=== PATIENT | male | born 1955 | race Two or more races ===

== ENCOUNTER → 2020-07-19 | Outpatient (CLI) | payer OTHER ==
--- NOTE | 2020-07-19 13:20 | Diagnostic Imaging Report ---
Exam: CHEST 2 VIEWS Date: 07/19/2020 1:16 PM INDICATION: ^COUGH Comparison: None FINDINGS: Lateral view is limited due to low lung volumes. Lines/Tubes:None Lungs:The lungs are well inflated. No focal consolidation or pulmonary edema. Bilateral nodular probable nipple shadows are noted at the lung bases. Pleura:No pleural effusion. No pneumothorax. Heart/Mediastinum:The cardiomediastinal silhouette is normal in size and contour. Bones/Soft Tissues: No acute osseous abnormality. Upper abdomen: Unremarkable. IMPRESSION: Negative for acute intrathoracic process. Signed by: Jerson Ibarra MD on 07/19/2020 1:17 PM
== END ==
LOC: RAD 12:14
PROVIDERS: ATTEND Internal Medicine
DX: R05 Cough (principal)
CPT/HCPCS: 71046

== ENCOUNTER → 2020-12-27 | Outpatient (CLI) | payer OTHER, MEDICARE | LOC: RAD 12:12 | PROVIDERS: ATTEND Internal Medicine | DX: Z86.16 Personal history of COVID-19 (principal) | CPT/HCPCS: 71046 ==